=== PATIENT | male | born 1955 | race Asian ===

== ENCOUNTER 2025-02-24 11:34 | Emergency (ER) | payer OTHER ==
[~2025-02-24] VITALS: Ht 172.7 cm; Wt 76.0 kg
[2025-02-24] MEDS: NITROGLYCERIN 0.4 MG SL TAB SL ONE (11:45)
--- NOTE | 2025-02-24 11:47 | ED.PDOC ---
HPI Comments 69 year old male presents to the ED with a chief complaint of chest pain onset today (02/24/25) about 2 hours prior to ED arrival. Patient states he was using computer when he began experiencing substernal chest pain, described as a pressure sensation. PMHx HTN. Denies headache, dizziness, shortness of breath, fever, chills, nausea, vomiting, diarrhea, dysuria, hematuria, cold, cough, congestion. No other symptoms or modifying factors present at this time. Chief Complaint: Chest Pain Time Seen by MD: 11:40 Reviewed Notes: Medications, Allergies Allergies: Coded Allergies: NO KNOWN ALLERGIES (Unverified , 02/24/25) Information Source: Patient Mode of Arrival: Ambulatory Severity: Moderate Timing: Hours Duration: Since onset Prehospital treatment: None Location: Substernal Radiation: No Radiation Quality: Pressure Onset: At Rest Cardiac Risk Factors: HTN PE Risk Factors: None History of: None Modifying Factors: Nothing Past Medical History PAST MEDICAL HISTORY: HTN Surgical History: Denies all surgeries Family History Family History: Reviewed,noncontributory to illness, No family hx of Cancer, No family hx of DM, No family hx of Heart tray, No family hx of HTN, No family hx ofKidney tray, No family hx of Liver tray, No family hx of Lung tray, No family hx of Stroke Social History Smoker: Non-Smoker Alcohol: Denies ETOH Use Drugs: Denies Drug Use Lives In: Home Constitutional: denies: chills, diaphoresis, fatigue, fever, malaise, sweats, weakness, others EENTM: denies: blurred vision, double vision, ear bleeding, ear discharge, ear drainage, ear pain, ear ringing, eye pain, eye redness, hearing loss, mouth pain , mouth swelling, nasal discharge, nose bleeding, nose congestion, nose pain, photophobia, tearing, throat pain, throat swelling, voice changes, others Respiratory: denies: cough, hemoptysis, orthopnea, SOB at rest, SOB with excertion, stridor, wheezing, others Cardiovascular: reports: chest pain; denies: dizzy spells, diaphoresis, Dyspnea on exertion, edema, irregular heart beat, left arm pain, lightheadedness, palpitations, PND, syncope, others Gastrointestinal: denies: abdomen distended, abdominal pain, blood streaked bowels, constipated, diarrhea, dysphagia, difficulty swallowing, hematemesis, melena, nausea, poor appetite, poor fluid intake, rectal bleeding, rectal pain, vomiting, others Genitourinary: denies: burning, dysuria, flank pain, frequency, hematuria, incontinence, penile discharge, penile sore, pain, testicle pain, testicle swelling, urgency, others Neurological: denies: dizziness, fainting, headache, left sided numbness, left sided weakness, numbness, paresthesia, pre-existing deficit, right sided numbness, right sided weakness, seizure, speech problems, tingling, tremors, weakness, others Musculoskeletal: denies: back pain, gout, joint pain, joint swelling, muscle pain, muscle stiffness, neck pain, others Integumetry: denies: bruises, change in color, change in hair/nails, dryness, laceration, lesions, lumps, rash, wounds, others Allergic/Immunocompromised: denies: Difficulty Healing, Frequent Infections, Hives, Itching, others Hematologic/Lymphatic: denies: anemia, blood clots, easy bleeding, easy bruising, swollen glands, others Endocrine: denies: excessive hunger, excessive sweating, excessive thirst, excessive urination, flushing, intolerance to cold, intolerance to heat, unexplained weight gain, unexplained weight loss, others Psychiatric: denies: anxiety, bipolar disorder, depression, hopeless, panic disorder, schizophrenia, sleepless, suicidal, others All Other Systems: Reviewed and Negative Physical Exam General Appearance: Moderate Distress, Normal HEENT: Normal ENT Inspection, Pharynx Normal, TMs Normal Neck: Full Range of Motion, Non-Tender, Normal, Normal Inspection Respiratory: Chest Non-Tender, Lungs Clear, No Accessory Muscle Use, No Respiratory Distress, Normal Breath Sounds Cardiovascular: No Edema, No JVD, No Murmur, No Gallop, Normal Peripheral Pulses, Regular Rate/Rhythm Breast Exam: Deferred Gastrointestinal: No Organomegaly, Non Tender, No Pulsatile Mass, Normal Bowel Sounds, Soft Genitalia: Deferred Pelvic: Deferred Rectal: Deferred Extremities: No calf tenderness, Normal capillary refill, Normal inspection, Normal range of motion, Non-tender, No pedal edema Musculoskeletal : Apperance: Normal Neurologic: Alert, 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 Was a procedure done?: No CP Differential Dx Differential Diagnosis: A-fib, A-Flutter, Angina, Anxiety / Panic Attack, Atrial Dysrhythmia, Electrolyte Disorder X-Ray, Labs, Meds, VS Vital Signs Date Time Temp Pulse Resp B/P (MAP) Pulse Ox O2 Delivery O2 Flow Rate FiO2 02/24/25 13:28 98.3 65 16 193/85 (121) 98 98.3 02/24/25 13:28 65 14 98 Room Air 02/24/25 11:45 193/89 02/24/25 11:44 68 02/24/25 11:36 98.0 70 18 148/67 94 98.0 Lab Test 02/24/25 15:10 02/24/25 13:13 02/24/25 12:09 Range/Units Troponin I High Sensitivity 14 16 13 </=54 ng/L White Blood Count 5.4 4.4-10.8 10^3/uL Red Blood Count 4.99 4.5-5.90 10^6/uL Hemoglobin 14.3 13.5-17.5 g/dL Hematocrit 42.7 41.0-53.0 % Mean Corpuscular Volume 85.6 80.0-100.0 fL Mean Corpuscular Hemoglobin 28.6 28.0-32.0 pg Mean Corpuscular Hemoglobin Concent 33.4 32.0-36.0 g/dL Red Cell Distribution Width 15.1 H 11.8-14.3 % Platelet Count 232 140-450 10^3/uL Mean Platelet Volume 7.9 6.9-10.8 fL Neutrophils (%) (Auto) 37.0-80.0 % Lymphocytes (%) (Auto) 10.0-50.0 % Monocytes (%) (Auto) 0.0-12.0 % Eosinophils (%) (Auto) 0.0-7.0 % Basophils (%) (Auto) 0.0-2.0 % Neutrophils # (Auto) 1.6-8.6 10 ^3/uL Lymphocytes # (Auto) 0.4-5.4 10 ^3/uL Monocytes # (Auto) 0-1.3 10 ^3/uL Differential Total Cells Counted 100.0 100 Neutrophils % (Manual) 32 L 37.0-80.0 Band Neutrophils % (Manual) 0 Lymphocytes % (Manual) 42 10.0-50.0 Monocytes % (Manual) 7 0-12 Eosinophils % (Manual) 19 H 0-7 Basophils % (Manual) 0 0.0-2.0 Metamyelocytes % (manual) 0 Myelocytes % (Manual) 0 Promyelocytes % (Manual) 0 Blast Cells % (Manual) 0 Reactive Lymphocytes 0 Platelet Estimate Adequate Red Blood Cell Morphology Normal Sodium Level 141 136-145 mmol/L Potassium Level 3.4 L 3.5-5.1 mmol/L Chloride Level 108 H 98-107 mmol/L Carbon Dioxide Level 23 20-31 mmol/L Anion Gap 10 5-15 Blood Urea Nitrogen 19 9-23 mg/dL Creatinine 1.60 H 0.700-1.30 mg/dL Glomerular Filtration Rate Calc 47 >90 mL/min BUN/Creatinine Ratio 11.9 10.0-20.0 Serum Glucose 94 74-106 mg/dL Calcium Level 9.0 8.7-10.4 mg/dL Current Medications Medications (Trade) Dose Ordered Sig/Jaxson Route Start Time Stop Time Status Last Admin Aspirin 325 mg ONCE ONCE PO 02/24/25 11:45 02/24/25 11:46 DC 02/24/25 11:45 Nitroglycerin (Ntrostat Sublingual) 0.4 mg ONCE ONCE SL 02/24/25 11:45 02/24/25 11:46 DC 02/24/25 11:45 Patient alert. Complaining of chest pain. Has risk factors for coronary artery disease. Vitals stable. Answering questions. Potassium slightly low. WBC within normal limits. Hemoglobin within normal limits. EKG reviewed does not show any acute changes. Was given aspirin. Was given nitro. Patient states that he is feeling much better. Cardiac marker within normal limits. Reviewed with hospitalist. He insists on going home. Made an appointment for him to follow up with his primary care physician. No leg swelling. No shortness a breath. Heart rate within normal limits. Saturation pristine on room air. Explained to the patient. Continue monitoring. Was told to follow up with his primary care physician. Was told to come back if there is any problem. [facility] [id number] [id number] Ph: [phone] DIAGNOSTIC IMAGING Diagnostic Imaging Report : [id number] Signed PATIENT: KIMBERLY VYAS ACCT: [id number] UNIT: [id number] : 1955 LOC: ER ROOM / BED: / AGE / SEX: 69 / M ADM STATUS: REG ER SERVICE 1141 ORDERING PHYSICIAN: CAROLA VALDEZ MD PROCEDURE(s): CXRP - CHEST PORTABLE REASON: sob ORDER NUMBER(s): [id number], ACCESSION NUMBER(s): [id number] INDICATION: sob TECHNIQUE: Frontal view of the chest. COMPARISON: None FINDINGS: . The heart and mediastinal contours are grossly unremarkable. There is no evidence of pleural disease. The lungs are clear. The bony structures of the chest are intact without fracture. IMPRESSION: 1. No evidence of acute disease. ATED BY: GENTRY STEARNS MD DICTATED DATE/TIME: 02/24/258 SIGNED BY: GENTRY STEARNS MD SIGNED DATE/TIME: 02/24/251217 CC: Time of 1ST Reevaluation: 12:10 Reevaluation 1ST: Unchanged Time of 2ND Reevaluation: 16:45 Reevaluation 2ND: Improved Patient Education/Counseling: Diagnosis, Treatment, Prognosis Family Education/Counseling: No Family Present SEPSIS Sepsis Screen Date sepsis recognized/suspect: Feb 24, 2025 Time Sepsis recognized/suspect: 1139 Recent Procedure: No On Antibiotic Therapy: No Respiratory Rate >20: No Heart Rate >90: No Temp<36 C (96.8 F) or >38.3 C: No SBP <90 or MAP <65 mmHG: No New Acute Mental Status Change: No Is the patient on CPAP, BIPAP,: No Physician Orders Chest Portable (02/24/25 11:41) Urinalysis (02/24/25 11:41) Vital Signs Date Time Temp Pulse Resp B/P (MAP) Pulse Ox O2 Delivery O2 Flow Rate FiO2 02/24/25 13:28 98.3 65 16 193/85 (121) 98 98.3 02/24/25 13:28 65 14 98 Room Air 02/24/25 11:45 193/89 02/24/25 11:44 68 02/24/25 11:36 98.0 70 18 148/67 94 98.0 Laboratory Tests Test 02/24/25 12:09 White Blood Count 5.4 10^3/uL (4.4-10.8) Medications Medications Dose Ordered Sig/Jaxson Route Start Time Stop Time Status Last Admin Dose Admin Aspirin 325 mg ONCE ONCE PO 02/24/25 11:45 02/24/25 11:46 DC 02/24/25 11:45 Nitroglycerin 0.4 mg ONCE ONCE SL 02/24/25 11:45 02/24/25 11:46 DC 02/24/25 11:45 Departure 1 Departure Time of Disposition: 13:35 Impression: Primary Impression: Hypertensive urgency Additional Impression: Musculoskeletal chest pain Disposition: 01 HOME / SELF CARE / HOMELESS Condition: Good Discharged With: Self Critical Care Note Critical Care Time?: No Stability Stability form required: No Heart Score Heart Score: Heart Score Response (Comments) Value History Slightly Suspicious 0 EKG Normal 0 Age >65 2 Risk Factors >3 or Hx ASHD 2 Troponin Normal limit 0 Total 4 I personally scribed for CAROLA VALDEZ MD ([email or web address]) on 02/24/25 at 11:47. Electronically submitted by Imelda Schreiber ([email or web address]). I personally scribed for CAROLA VALDEZ MD ([email or web address]) on 02/24/25 at 15:34. Electronically submitted by Imelda Schreiber ([email or web address]). CAROLA VALDEZ MD Feb 24, 2025 11:47
--- NOTE | 2025-02-24 12:21 | DVH ---
INDICATION: sob TECHNIQUE: Frontal view of the chest. COMPARISON: None FINDINGS: . The heart and mediastinal contours are grossly unremarkable. There is no evidence of pleural disea se. The lungs are clear. The bony structures of the chest are intact without fracture. IMPRESSION: 1. No evidence of acute disease.
[2025-02-24 12:30] LABS: Sodium 141 mmol/L (136-145)
[2025-02-24 12:31] LABS: Anion Gap 10 (5-15); Calcium 9.0 mg/dL (8.7-10.4); Carbon Dioxide 23 mmol/L (20-31)
[2025-02-24 12:32] LABS: Chloride 108 mmol/L (98-107); Potassium 3.4 mmol/L (3.5-5.1)
[2025-02-24 12:36] LABS: BUN/Creatinine Ratio 11.9 (10.0-20.0); Blood Urea Nitrogen 19 mg/dL (9-23); Glucose 94 mg/dL (74-106)
[2025-02-24 12:37] LABS: Hematocrit 42.7 % (41.0-53.0); Hemoglobin 14.3 g/dL (13.5-17.5); Mean Corpuscular Hemoglobin 28.6 pg (28.0-32.0); Mean Corpuscular Volume 85.6 fL (80.0-100.0)
[2025-02-24 12:52] LABS: RBC Morphology Normal; Total Cells Counted 100.0 (100)
[2025-02-24 17:16] VITALS: BP 188/87; PULSE 68; RESP 17; TEMP 98.1; O2SAT 95
--- NOTE | 2025-02-27 14:34 | ECG ---
[facility] Test Date: 2025-02-24 Test Time: 11:44:40 Pat Name: KIMBERLY VYAS Department: ED Room: Gender: M [employer] Sales Beauty Advisor: BETH : 1955 Requested By: CAROLA VALDEZ Order Number: [id number] Reading MD: Heladio Templeton Measurements Intervals Effie Rate: 68 P: 65 VA: 210 QRS: 32 QRSD: 84 T: 12 QT: 403 QTc: 429 Interpretive Statements Sinus rhythm Electronically Signed On 02-27-2025 18:15:17 PDT by Heladio Templeton Please click the below link to view image of tracing.
== END 2025-02-24 17:25 | disposition home or self-care (01) ==
LOC: ER 11:41
DX: I16.0 Hypertensive urgency (principal); R07.89 Other chest pain; I10 Essential (primary) hypertension
CPT/HCPCS: 36415; 71045; 80048; 84484; 85007; 85027; 93005

== ENCOUNTER 2025-02-27 06:48 | Outpatient (CLI) | payer OTHER ==
[2025-02-27 07:10] LABS: Hematocrit 45.6 % (41.0-53.0); Hemoglobin 15.4 g/dL (13.5-17.5); Mean Corpuscular Hemoglobin 28.7 pg (28.0-32.0); Mean Corpuscular Volume 85.3 fL (80.0-100.0)
[2025-02-27 07:23] LABS: Urine Protein, UAD TRACE (Negative)
[2025-02-27 07:59] LABS: Chloride 107.0 mmol/L (98-107); Potassium 4.0 mmol/L (3.5-5.1); Sodium 141.0 mmol/L (136-145)
[2025-02-27 08:00] LABS: Anion Gap 11.0 (5-15); Carbon Dioxide 23.0 mmol/L (20-31)
[2025-02-27 08:01] LABS: Calcium 9.3 mg/dL (8.7-10.4)
[2025-02-27 08:03] LABS: Microalb/Creat Ratio, Urine 91.0
[2025-02-27 08:05] LABS: Albumin 4.7 g/dL (3.2-4.8)
[2025-02-27 08:06] LABS: BUN/Creatinine Ratio 9.3 (10.0-20.0); Blood Urea Nitrogen 15.0 mg/dL (9-23); Glucose 98.0 mg/dL (74-106)
[2025-02-27 08:41] LABS: Total Cells Counted 100.0 (100)
[2025-02-27 08:42] LABS: Uric Acid 11.1 mg/dL (3.7-9.2)
== END 2025-02-27 17:00 | disposition home or self-care (01) ==
LOC: LAB 06:48
PROVIDERS: ATTEND Internal Medicine
DX: E11.22 Type 2 diabetes mellitus with diabetic chronic kidney disease (principal); E11.21 Type 2 diabetes mellitus with diabetic nephropathy; N18.30 Chronic kidney disease, stage 3 unspecified; E21.3 Hyperparathyroidism, unspecified; E55.9 Vitamin D deficiency, unspecified; N39.0 Urinary tract infection, site not specified; D63.1 Anemia in chronic kidney disease; M10.9 Gout, unspecified; R80.9 Proteinuria, unspecified
CPT/HCPCS: 36415; 80069; 81001; 82043; 82570; 83970; 84550; 85007; 85027

== ENCOUNTER 2025-03-15 07:38 | Outpatient (CLI) | payer OTHER ==
[~2025-03-15] VITALS: Ht 438.7 cm; Wt 77.0 kg
--- NOTE | 2025-03-15 10:18 | DVHCARD ---
Cardiology Stress Test [place] Treadmill Stress Test [place] Referring MD: MD Armando Protocol: Maninder (with cardiolite) Reason for referral: Chest Pain Target heart Rate:@85%: 130 Percent MPHR: 153 METS: 10.10 Resting Heart rate: 61 Resting Blood Pressure: 191/85 Exercise Heart Rate: 166 Exercise Blood Pressure: 248/86 Reason for Termination of Test: Completion of Protocol Baseline EKG: NSR Stress EKG: Sinus tachycardia Functional Capacity: Good Normal Heart Rate Response: Adequate Blood Pressure Response: Hypertensive Clinical response: Non-ischemic Arrhythmia?: No Cardiolite Injected?: Yes ST-T Changes: Non/Minimal Probability of Inducible Ische: Perfusion result pending Comments: Uneventful Maninder protocol. Hypertensive during procedure Date of Service: Mar 15, 2025 Billing Provider: TAYLER HERNANDEZ Cardiology Common Codes: PROCEDURE ONLY Treadmill W/Cardiolite Nuclear: [id number], INTERP, RPT TAYLER HERNANDEZ Mar 15, 2025 10:18
--- NOTE | 2025-03-15 11:38 | DVHSR ---
APPROVED REPORT Exam: Nuclear Stress Test BMI: 0 Stress Test Details HR Max Heart Rate (APMHR): 153.269103 bpm Target HR (85% APMHR): 130.887190 bpm BP ECG Stress ECG Conclusion mild inferior wall perfusion defect no severe ishcemia noted lvef 73% Gi artifact NM EXAM: Myocardial Perfusion REST/STRESS Imaging Protocol: Rest Tc-99m/Stress Tc-99m 1 day Resting Data Rest SPECT myocardial perfusion imaging was performed in supine position 60 minutes following the int ravenous injection of 11.0 mCi of Tc-99m Sestamibi. Time of rest injection: 08:19 Date: 03/15/2025 Time of rest imagin:19 Date: Administration Route: IV Administration Site: Right Hand Exercise Stress At peak stress, the patient was injected intravenously with 29.2mCi of Tc-99m Sestamibi. Time of stress injection: 09:52 Date: 03/15/2025 Time of stress imagin:12 Date: 03/15/2025 Administration Route: IV Administration Site: Right Hand Heart Rate at time of stress injection: 113 bpm. Patient continued to exercise for 4 minute(s). Gated Stress SPECT was performed 20 minutes after stress injection. The images were gated to evaluate regional wall motion and calculate left ventricular ejection fracti on. Stress only was performed in the Supine position. Nuclear Conclusion Nuclear Findings: negative for ischemia mild inferior wall perfusion defect no severe ishcemia noted lvef 73% Gi artifact
== END 2025-03-15 17:00 | disposition home or self-care (01) ==
LOC: XYW 07:38
PROVIDERS: ATTEND Internal Medicine
DX: R07.9 Chest pain, unspecified (principal)
CPT/HCPCS: 78452; 93017; A9500

== ENCOUNTER 2025-04-05 06:42 | Outpatient (CLI) | payer OTHER ==
[2025-04-05 07:49] LABS: Anion Gap 11 (5-15); Carbon Dioxide 21 mmol/L (20-31); Potassium 4.1 mmol/L (3.5-5.1); Sodium 141 mmol/L (136-145)
[2025-04-05 07:50] LABS: Calcium 9.0 mg/dL (8.7-10.4)
[2025-04-05 07:55] LABS: Glucose 98 mg/dL (74-106); Triglycerides 98 mg/dL (< 150)
[2025-04-05 07:56] LABS: BUN/Creatinine Ratio 13.5 (10.0-20.0); Blood Urea Nitrogen 19 mg/dL (9-23)
[2025-04-05 07:57] LABS: Cholesterol 130 mg/dL (< 200); HDL Cholesterol 41 mg/dL (40-59)
[2025-04-05 07:58] LABS: Chloride 109 mmol/L (98-107)
== END 2025-04-05 17:00 | disposition home or self-care (01) ==
LOC: LAB 06:42
PROVIDERS: ATTEND Internal Medicine
DX: I12.9 Hypertensive chronic kidney disease with stage 1 through stage 4 chronic kidney disease, or unspecified chronic kidney disease (principal); N18.31 Chronic kidney disease, stage 3a; E78.2 Mixed hyperlipidemia
CPT/HCPCS: 36415; 80048; 80061